=== PATIENT | male | born 1990 | race Caucasian/White ===

== ENCOUNTER 2018-09-23 12:30 | Emergency (ER) | payer MEDICAID ==
[2018-09-23 12:41] VITALS: BP 121/94
[2018-09-23] MEDS ORDERED: IBUPROFEN 600 MG TAB PO ONE (13:01)
--- NOTE | 2018-09-23 14:35 | EDPHY ---
H & P Time Seen by Provider: 09/23/18 13:42 HPI/ROS: CLINICAL IMPRESSION: Left knee pain ASSESSMENT/PLAN: 28-year-old male presents to the emergency department with left knee pain after twisting the knee earlier in the evening yesterday. He notes bruising to the medial aspect of the knee and difficulty with range of motion. X-rays negative for acute fracture and dislocation. Distal neurovascular exam intact. Unable to perform anterior drawer testing Saray testing. Suspect ligamentous or meniscus injury. Patient was placed in an Esdras bandage and given crutches. Orthopedic referral provided, warning signs return to ED sooner alignment discharge. DIFFERENTIAL DX: Acute fracture, sprain, ligamentous injury ED PROCEDURES: Procedure: Splint placement. A Esdras bandage to left knee and crutches splint was applied by pest control service technician, supervised by myself. After application of the splint I returned and re- examined the patient. The splint was adequately immobilizing the joint and distal to the splint the patient's circulation and sensation was intact. ED COURSE: CHIEF COMPLAINT: Left knee pain HPI: 28-year-old male presents to the emergency department with complaints of left knee after he reportedly fell and twisted the knee earlier today. Patient reports the knee was"turned sideways". However he also reports he was able to initially ambulate on the knee. No reported numbness or loss of sensation to the foot or toes or open wound. No ankle or hip injury. No prior knee surgery. PAST MEDICAL HISTORY: None reported Pertinent Past Surgical History: None reported Social History: Nonsmoker otherwise healthy REVIEW OF SYSTEMS: All other systems negative Constitutional: No fever, no chills Musculoskeletal: No deformity, + joint pain Skin: No rashes, color change or open wounds. Neurological: No sensory loss or weakness. PHYSICAL EXAM: General Appearance: Alert, oriented, appropriate for age, cooperative, NAD, well hydrated, non-toxic appearing, VSS, no hypoxia. Neurological: Alert and oriented x 3, normal sensation and strength of extremities Skin: Warm, dry, no rashes, no nodules on palpation. Musculoskeletal: Left knee pain to palpation with visible contusion to the medial aspect of the knee. No clinical indication of dislocation, patellar dislocation. Patient is able to slightly flex the knee and has a negative anterior drawer test. Unable to perform Saray testing due to pain. No ankle or hip pain MEDICAL DECISION MAKING: Patient was seen independently.Secondary supervising physician at time of evaluation was Dr Mendez. Diagnosis: Left knee strain. New, requires workup Summary: See assessment and plan for summary of ED visit Independent visualization of images, tracing, or specimens yes. Patient Progress improved. Smoking Status: Never smoked Constitutional: Initial Vital Signs Temperature (C) 36.7 C 09/23/18 12:36 Heart Rate 78 09/23/18 12:36 Respiratory Rate 16 09/23/18 12:36 Blood Pressure 121/94 H 09/23/18 12:36 O2 Sat (%) 98 09/23/18 12:36 O2 Delivery Mode Room Air Allergies/Adverse Reactions: No Known Allergies Allergy (Unverified 09/23/18 12:36) MDM/Departure - MDM Imaging: I viewed and interpreted images myself Medications Given: Discontinued Medications Ibuprofen (Motrin) 600 mg PO EDNOW ONE Stop: 09/23/18 13:02 Last Admin: 09/23/18 13:07 Dose: 600 mg - Depart Disposition: Home, Routine, Self-Care Clinical Impression: Knee pain, left Condition: Good Instructions: Knee Sprain (ED) Additional Instructions: DISCHARGE INSTRUCTIONS FROM YOUR DOCTOR Thank you for visiting our emergency department today. Please keep in mind that discharge from the emergency department does not mean that there is nothing wrong - it simply means that we have not identified an emergency condition that requires further evaluation or treatment in the hospital. You should always plan to follow up with primary care for re-evaluation of your condition in the next 2-3 days. If you have been referred to a specialist, please call as soon as possible (today or tomorrow) to schedule your follow up appointment at the appropriate time. The x-rays of your knee did not identify an obvious tibial plateau fracture, patellar fracture, or dislocation. You will need to see Orthopedics for follow- up. A referral was provided. We do not perform routine orthopedic MRIs in the emergency room however you may need an outpatient MRI to further assess the ligaments in the knee. Rest and elevate the affected extremity as much as possible. Ice the affected areas 20 min on, 20 min off for the next several days. Please use Tylenol or ibuprofen over the counter in appropriate doses as outlined on your discharge papers. Take ibuprofen with food and a large glass of water.Please return to the emergency department for severe pain, significant swelling, loss of sensation to the foot or toes, discoloration or temperature change to the lower leg, or any other concern. People present with illnesses and injuries in different ways, and it is always possible that we have missed something. You may always return for re-evaluation if symptoms worsen or if they are not improving or if you develop new/different symptoms. Again, thank you for choosing our emergency department. We hope that you feel better. Referrals: NONE *PRIMARY CARE P,. [Primary Care Provider] - As per Instructions Brady Fitzpatrick MD [Medical Doctor] - As per Instructions
== END 2018-09-23 14:59 | disposition home or self-care (01) ==
DX: S83.92XA Sprain of unspecified site of left knee, initial encounter (principal); X50.9XXA Other and unspecified overexertion or strenuous movements or postures, initial encounter